=== PATIENT | female | born 1965 | race Caucasian/White ===

== ENCOUNTER 2021-03-13 15:20 | Inpatient (IN) | payer OTHER, SELFPAY ==
[2021-03-13 16:09] VITALS: BP 136/81; PULSE 98; RESP 20; TEMP 36.2; O2SAT 93; BMI 39.1
--- NOTE | 2021-03-13 16:16 | DI.RAD.S_ITS ---
PROCEDURE: XR CHEST 2V INDICATIONS: shortness of breath TECHNIQUE: 2 views of the chest were acquired. COMPARISON: None. FINDINGS: Surgical changes and devices: Right shoulder arthroplasty hardware is partially seen. Lungs and pleura: Lungs are clear. No pleural effusions or pneumothorax. Mediastinum: Mediastinal contours are normal. Heart size is normal. Bones and chest wall: No suspicious bony abnormalities. Age-appropriate bony degenerative changes are seen. Accentuated thoracic kyphosis is seen. Soft tissues appear unremarkable. IMPRESSION: No acute cardiopulmonary process is seen. Postoperative and degenerative changes are seen. Dictated by: Gianfranco Al M.D. on 03/13/2021 at 16:06 Approved by: Gianfranco Al M.D. on 03/13/2021 at 16:07
[2021-03-13 16:39] LABS: COVID19 -Nasal RAPID POSITIVE (Negative)
[2021-03-13 18:40] LABS: Add Manual Diff / Slide Review NO; Basophils Absolute Auto 0 /uL (0-100); Basophils Percent Auto 0.3 % (0-2); Eosinophils Absolute Auto 0 /uL (0-450); Eosinophils Percent Auto 0.5 % (2-4); Hemoglobin 12.9 g/dL (12.0-16.0); Lymphocytes Absolute Auto 1500 /uL (1100-4500); Lymphocytes Percent Auto 34.9 % (25-40); Mean Corpuscular Hemoglobin 28.3 PG (26-34); Mean Corpuscular Volume 83.3 fL (80-100); Monocytes Absolute Auto 400 /uL (0-900); Neutrophils Absolute Auto 2400 /uL (1500-7000); Neutrophils Percent Auto 55.3 % (50-75); Platelet Count 125 X10^3/uL (150-400); Red Blood Cell Count 4.56 X10^6/uL (4.0-5.2); White Blood Cell Count 4.4 X10^3/uL (4.5-11.0)
[2021-03-13 18:52] LABS: Alanine Aminotransferase 47 IU/L (<35); Albumin Globulin Ratio 1.3 (1.0-2.8); Alkaline Phosphatase 81 U/L (38-126); Aspartate Aminotransferase 40 IU/L (14-36); BUN Creatinine Ratio 17.8 (6-22); Bilirubin Total 0.6 mg/dL (0.2-1.3); Blood Urea Nitrogen 13 mg/dL (7-17); Calcium 8.8 mg/dL (8.4-10.2); Carbon Dioxide 27 mmol/L (22-32); Chloride 104 mmol/L (98-107); Estimated Glomerular Filt Rate > 60.0 mL/min (>60); Globulin 3.2 g/dL (1.7-4.1); Glucose 107 mg/dL (70-100); HEMOLYSIS < 15 (0-50); Potassium 3.8 mmol/L (3.4-5.1); Sodium 139 mmol/L (137-145); Total Protein 7.2 g/dL (6.3-8.2)
[2021-03-13 18:54] VITALS: PULSE 107; O2SAT 93
--- NOTE | 2021-03-13 18:55 | ED.GENADULT ---
HPI - General Adult General Chief complaint: Shortness of Breath/Dyspnea Stated complaint: Difficulty Breathing/Cough Time Seen by Provider: 03/13/21 18:54 Source: patient Mode of arrival: Family Vehicle Limitations: no limitations History of Present Illness HPI narrative: 55-year-old woman with a history of mild intermittent asthma, fibromyalgia, depression, chronic back pain for which she recently had epidural nerve ablation, no COVID vaccination presents with 3 days of fever, cough, general malaise, extraordinary fatigue, dyspnea no orthopnea, no chest pain no palpitations no abdominal pain vomiting or diarrhea. Related Data Allergies Allergy/AdvReac Type Severity Reaction Status Date / Time lisinopril Allergy Cough Verified 03/13/21 16:15 Penicillins Allergy Hives Verified 03/13/21 16:14 sertraline [From Zoloft] Allergy Hives Verified 03/13/21 16:15 Review of Systems Review of Systems Narrative: Remainder of complete review of systems is otherwise unremarkable except for that included in the HPI. Patient History Medical History (Updated 03/13/21 @ 19:24 by Cari Gates MD) Chronic pain COVID-19 Depression Fibromyalgia Surgical History (Updated 03/13/21 @ 19:18 by Cari Gates MD) S/P epidural steroid injection Social History Smoking Status: Current every day smoker Smoking Status: Current every day smoker tobacco type: cigarettes alcohol intake frequency: holidays/special occasions only Substance Use Type: does not use Exam Narrative Exam Narrative: General: Mildly ill-appearing with moderate distress. Tachypnea but Able to give a complete and coherent history. Well-nourished well-developed HEENT: Moist mucous membranes, normal sclera with reactive pupils, Neck: No JVD, supple Respiratory: Lungs with scattered wheeze in all lung o[place] but Full and symmetrical air movement. Able to speak in 5-6 word sentences. Supraclavicular retractions. No rhonchi Cardiac: Mild tachycardia but otherwise Regular rhythm no murmurs no bruits Abdomen: Soft, nontender, good bowel tones, no flank pain Skin: Warm and dry, no rashes Neurologic: Grossly neurologically intact with no obvious asymmetries or abnormalities Extremities: No trauma, well perfused Psych: Cooperative, appropriate insight and affect Initial Vital Signs Initial Vital Signs: Vital Signs Temperature 97.2 F L 03/13/21 16:09 Pulse Rate 98 H 03/13/21 16:09 Respiratory Rate 20 03/13/21 16:09 Blood Pressure 136/81 03/13/21 16:09 Pulse Oximetry 93 03/13/21 16:09 Course Orders Ordered: ED Orders 03/13/21 16:16 XR chest 2V Stat EKG-12 Lead Stat Measure peak expiratory flow ONCE RT Consult Eval and Treat Now 03/13/21 16:18 COVID19 -Nasal swab/Pre-Proc Stat 03/13/21 18:30 Complete Blood Count AUTO DIFF Stat Comprehensive Metabolic Panel Stat D Dimer Stat Lactate (Lactic Acid) Stat 03/13/21 20:13 Lactate (Lactic Acid) Stat Procalcitonin Stat 03/13/21 21:10 Blood Culture Stat Acetaminophen (Acetaminophen 325 Mg Tablet) 650 mg PO Q6HR PRN PRN Reason: Fever/Mild Pain (1-3) Albuterol (Albuterol 2.5 Mg/3 Ml Neb (Adult)) 2.5 mg INH RTQ6HR MEGHAN Albuterol (Albuterol 2.5 Mg/3 Ml Neb (Adult)) 2.5 mg INH RTQ4HR PRN PRN Reason: Shortness Of Breath Or Wheezing Dexamethasone (Dexamethasone 10 Mg/Ml Vial) 6 mg IV DAILY [facility] Enoxaparin Sodium (Enoxaparin 40 Mg/0.4 Ml Syringe) 40 mg SUBCUT DAILY [facility] Remdesivir 100 mg/ Sodium (Chloride) 250 mls @ 250 mls/hr IV Q24H [facility] Stop: 03/17/21 21:59 Azithromycin 500 mg/ Dextrose 250 mls @ 250 mls/hr IV Q24H [facility] Last Admin: 03/13/21 22:00 Dose: 250 mls/hr Documented by: MIKI Naloxone HCl (Naloxone 0.4 Mg/Ml Vial) 0.2 mg IV Q2MIN PRN PRN Reason: Opiate Reversal Nicotine (Nicotine 7 Mg Patch) 7 mg TOP DAILY [facility] Ondansetron HCl (Ondansetron 4 Mg/2 Ml Inj) 4 mg IV Q8HR PRN PRN Reason: Nausea And Vomiting Discontinued Medications Albuterol/Ipratropium (Albuterol/Ipratropium 3 Ml Ampul) 3 ml INH NOW ONE Stop: 03/13/21 19:25 Dexamethasone (Dexamethasone 10 Mg/Ml Vial) 6 mg IV NOW ONE Stop: 03/13/21 19:25 Last Admin: 03/13/21 19:54 Dose: 6 mg Documented by: MISSAEL Remdesivir 200 mg/ Sodium (Chloride) 250 mls @ 250 mls/hr IV NOW ONE Stop: 03/13/21 20:23 Last Admin: 03/13/21 19:53 Dose: 250 mls/hr Documented by: MISSAEL Sodium Chloride (Normal Saline 0.9%) 1,000 mls @ 150 mls/hr IV CONT MEGHAN Last Admin: 03/13/21 19:53 Dose: 150 mls/hr Documented by: MISSAEL Vital Signs Vital signs: Vital Signs - 8 hr 03/13/21 18:54 03/13/21 19:00 Pulse Rate 107 H 103 H Blood Pressure 138/78 Pulse Oximetry 93 93 Medical Decision Making Lab Data Result diagrams: 03/13/21 18:30 03/13/21 18:30 Labs: Lab Results 03/13/21 03/13/21 03/13/21 Range/Units 16:18 18:30 18:30 WBC 4.4 L (4.5-11.0) X10^3/uL RBC 4.56 (4.0-5.2) X10^6/uL Hgb 12.9 (12.0-16.0) g/dL Hct 38.0 (36-46) % MCV 83.3 (80-100) fL MCH 28.3 (26-34) PG MCHC 34.0 (30-36) % RDW 14.0 (11.6-14.8) % Plt Count 125 L (150-400) X10^3/uL Neut % (Auto) 55.3 (50-75) % Lymph % (Auto) 34.9 (25-40) % [place] % (Auto) 9.0 (3-14) % Eos % (Auto) 0.5 L (2-4) % Baso % (Auto) 0.3 (0-2) % Neut # (Auto) 2400 (3553-6147) /uL Lymph # (Auto) 1500 (7988-9998) /uL [place] # (Auto) 400 (0-900) /uL Eos # (Auto) 0 (0-450) /uL Baso # (Auto) 0 (0-100) /uL D-Dimer (<230) ng/mL Sodium 139 (137-145) mmol/L Potassium 3.8 (3.4-5.1) mmol/L Chloride 104 (98-107) mmol/L Carbon Dioxide 27 (22-32) mmol/L BUN 13 (7-17) mg/dL Creatinine 0.73 (0.52-1.04) mg/dL Estimated GFR > 60.0 (>60) mL/min BUN/Creatinine Ratio 17.8 (6-22) Glucose 107 H (70-100) mg/dL Lactate (0.7-2.1) mmol/L Calcium 8.8 (8.4-10.2) mg/dL Total Bilirubin 0.6 (0.2-1.3) mg/dL AST 40 H (14-36) IU/L ALT 47 H (<35) IU/L Alkaline Phosphatase 81 (38-126) U/L Total Protein 7.2 (6.3-8.2) g/dL Albumin 4.0 (3.5-5.0) g/dL Globulin 3.2 (1.7-4.1) g/dL Albumin/Globulin Ratio 1.3 (1.0-2.8) SARS-CoV-2 (PCR) Positive H (Negative) 03/13/21 03/13/21 Range/Units 18:30 18:30 WBC (4.5-11.0) X10^3/uL RBC (4.0-5.2) X10^6/uL Hgb (12.0-16.0) g/dL Hct (36-46) % MCV (80-100) fL MCH (26-34) PG MCHC (30-36) % RDW (11.6-14.8) % Plt Count (150-400) X10^3/uL Neut % (Auto) (50-75) % Lymph % (Auto) (25-40) % [place] % (Auto) (3-14) % Eos % (Auto) (2-4) % Baso % (Auto) (0-2) % Neut # (Auto) (4321-5172) /uL Lymph # (Auto) (8762-0098) /uL Gray # (Auto) (0-900) /uL Eos # (Auto) (0-450) /uL Baso # (Auto) (0-100) /uL D-Dimer 387 H (<230) ng/mL Sodium (137-145) mmol/L Potassium (3.4-5.1) mmol/L Chloride (98-107) mmol/L Carbon Dioxide (22-32) mmol/L BUN (7-17) mg/dL Creatinine (0.52-1.04) mg/dL Estimated GFR (>60) mL/min BUN/Creatinine Ratio (6-22) Glucose (70-100) mg/dL Lactate 1.0 (0.7-2.1) mmol/L Calcium (8.4-10.2) mg/dL Total Bilirubin (0.2-1.3) mg/dL AST (14-36) IU/L ALT (<35) IU/L Alkaline Phosphatase (38-126) U/L Total Protein (6.3-8.2) g/dL Albumin (3.5-5.0) g/dL Globulin (1.7-4.1) g/dL Albumin/Globulin Ratio (1.0-2.8) SARS-CoV-2 (PCR) (Negative) Imaging Data Chest x-ray: Radiologist's Impression: FINDINGS:? ? Surgical changes and devices:? Right shoulder arthroplasty hardware is partially seen. ? Lungs and pleura:? Lungs are clear.? No pleural effusions or pneumothorax.? ? Mediastinum:? Mediastinal contours are normal.? Heart size is normal.? ? Bones and chest wall:? No suspicious bony abnormalities.? Age-appropriate bony degenerative changes are seen.? Accentuated thoracic kyphosis is seen.? ? Soft tissues appear unremarkable.? ? ? IMPRESSION:? ? No acute cardiopulmonary process is seen.? ? Postoperative and degenerative changes are seen.? ? ? Dictated by: Gianfranco Al M.D. on 03/13/2021 at 16:06 ?? ECG Data Interpretation: Sinus rhythm at a rate of 99 Normal axis, normal intervals No acute ischemic changes MDM Narrative Medical decision making narrative: 55-year-old woman on day 3 of COVID-19, non vaccinated. Feeling much better on 2 L of nasal cannula oxygen. Had been at 93% however significantly tachypneic and visibly dyspneic, much better with 2 L nasal cannula. She does have fairly significant wheeze but no significant rhonchi. Tachypnea improves with nasal cannula oxygen. Will complete workup an anticipate hospitalization. Will begin both Decadron an remdesivir. She does have a slight bump in transaminases but renal function is appropriate. Findings concerns and plan reviewed with patient. Discharge Plan Departure Patient Disposition: Admitted As Inpatient Clinical Impression: COVID-19 Admit Date/Time: 03/13/21 19:58 Admit Provider: Michael Null
[2021-03-13 19:00] VITALS: BP 138/78; PULSE 103; O2SAT 93
[2021-03-13 19:51] LABS: D Dimer 387 ng/mL (<230)
[2021-03-13] MEDS: SODIUM CHLORIDE 0.9% 1,000 ML 150 ML IV (19:53)
[2021-03-13] MEDS: REMDESIVIR 200 MG in SODIUM CHLORIDE 0.9% 210 ML 250 ML IV (19:53)
[2021-03-13] MEDS: DEXAMETHASONE 10 MG/ML VIAL 6 MG IV (19:54)
[2021-03-13 20:21] VITALS: BMI 39.1
[2021-03-13 21:00] LABS: Procalcitonin 0.06 ng/mL (<0.5)
[2021-03-13] MEDS: ALBUTEROL/IPRATROPIUM 3 ML AMPUL INH (21:30)
[2021-03-13 21:35] VITALS: PULSE 101; RESP 16; O2SAT 95
[2021-03-13 21:40] VITALS: BP 144/74; PULSE 104; RESP 22; TEMP 36.2; O2SAT 97
[2021-03-13] MEDS: AZITHROMYCIN 500 MG in DEXTROSE 5% IN WATER 250 ML IV (22:00)
--- NOTE | 2021-03-13 22:13 | P.HP_ITS ---
History of Present Illness History of Present Illness Date Patient Seen: 03/13/21 Time Patient Seen: 21:00 Chief complaint: Difficulty Breathing/Cough Narrative: Ms. Sal is a 55W with PMH active smoker, depression, chronic pain, mild asthma who presents to the hospital with shortness of breath. She has not been vaccinated against COVID. Three days ago she developed cough with clear sputum, shortness of breath, malaise, subjective fevers. No chest pain, abdomina l pain, nausea, vomiting. She has had pneumonia in the past and said this felt the same. She has not been diagnosed with COPD. In the ED workup was done, vitals were notable for sats of 93% on room air, respiratory rate in 20s, tachycardic in 100s. Labs notable for WBC 4.4, platelets 125, creatinine 0.73, AST 40, ALT 47. COVID positive. Lactate 1.0. D- dimer 387. Chest xray with no acute process. She was ordered for remdesivir, decadron, and inhalers and admitted for further treatment. Medications: buspar, lyrica, cyclobenzaprine, albuterol Patient History Medical History Chronic pain COVID-19 Depression Fibromyalgia Surgical History S/P epidural steroid injection Family & Social History Safety & Behavioral: Feels Safe in Current Yes Environment Been Physically Hurt or No Threatened By a Person Tobacco & Substance use: Smoking Status Current every day smoker alcohol intake frequency holiday/special occasion Substance Use Type does not use Meds Home Medications and Allergies Allergies Allergy/AdvReac Type Severity Reaction Status Date / Time lisinopril Allergy Cough Verified 03/13/21 16:15 Penicillins Allergy Hives Verified 03/13/21 16:14 sertraline [From Zoloft] Allergy Hives Verified 03/13/21 16:15 Review of Systems Review of Systems Narrative: 14 systems reviewed and negative aside from what is noted in HPI Exam Vital Signs (past 8 hours): - 03/14/21 03:00 03/14/21 04:09 Temperature 96.4 F L Pulse Rate 85 98 H Respiratory Rate 14 16 Blood Pressure 124/70 Pulse Oximetry 97 96 Oxygen Delivery Method Nasal Cannula Oxygen Flow Rate 2 Narrative Exam Narrative: GEN: moderate respiratory distress HEENT: PERRL, moist mucous membranes NECK: trachea midline, no JVD CV: tachycardic, no murmurs PULM: significant wheezing ABD: soft, nontender, nondistended, no organomegaly, normal bowel sounds EXT: warm and well perfused with no edema NEURO: awake, alert, oriented, no focal deficits Objective Labs Result Diagrams: 03/13/21 18:30 03/13/21 18:30 Labs: Laboratory Results - last 24 hr 03/13/21 03/13/21 03/13/21 16:18 18:30 18:30 WBC 4.4 L RBC 4.56 Hgb 12.9 Hct 38.0 MCV 83.3 MCH 28.3 MCHC 34.0 RDW 14.0 Plt Count 125 L Neut % (Auto) 55.3 Lymph % (Auto) 34.9 [place] % (Auto) 9.0 Eos % (Auto) 0.5 L Baso % (Auto) 0.3 Neut # (Auto) 2400 Lymph # (Auto) 1500 [place] # (Auto) 400 Eos # (Auto) 0 Baso # (Auto) 0 D-Dimer Sodium 139 Potassium 3.8 Chloride 104 Carbon Dioxide 27 BUN 13 Creatinine 0.73 Estimated GFR > 60.0 BUN/Creatinine Ratio 17.8 Glucose 107 H Lactate Calcium 8.8 Total Bilirubin 0.6 AST 40 H ALT 47 H Alkaline Phosphatase 81 Total Protein 7.2 Albumin 4.0 Globulin 3.2 Albumin/Globulin Ratio 1.3 Procalcitonin SARS-CoV-2 (PCR) Positive H 03/13/21 03/13/21 03/13/21 18:30 18:30 20:13 WBC RBC Hgb Hct MCV MCH MCHC RDW Plt Count Neut % (Auto) Lymph % (Auto) [place] % (Auto) Eos % (Auto) Baso % (Auto) Neut # (Auto) Lymph # (Auto) [place] # (Auto) Eos # (Auto) Baso # (Auto) D-Dimer 387 H Sodium Potassium Chloride Carbon Dioxide BUN Creatinine Estimated GFR BUN/Creatinine Ratio Glucose Lactate 1.0 1.0 Calcium Total Bilirubin AST ALT Alkaline Phosphatase Total Protein Albumin Globulin Albumin/Globulin Ratio Procalcitonin SARS-CoV-2 (PCR) 03/13/21 20:13 WBC RBC Hgb Hct MCV MCH MCHC RDW Plt Count Neut % (Auto) Lymph % (Auto) [place] % (Auto) Eos % (Auto) Baso % (Auto) Neut # (Auto) Lymph # (Auto) [place] # (Auto) Eos # (Auto) Baso # (Auto) D-Dimer Sodium Potassium Chloride Carbon Dioxide BUN Creatinine Estimated GFR BUN/Creatinine Ratio Glucose Lactate Calcium Total Bilirubin AST ALT Alkaline Phosphatase Total Protein Albumin Globulin Albumin/Globulin Ratio Procalcitonin 0.06 SARS-CoV-2 (PCR) Assessment & Plan Assessment & Plan narrative: Ms. Sal is a 55W active smoker who presents with shortness of breath found to be wheezing and COVID positive 1. Acute respiratory distress -patient active smoker with last cigarette yesterday, but wants to quit -COVID positive -exam notable for significant wheezing, also mild clear sputum production -clinically sounds consistent with COPD exacerbation, which would be a new diagnosis vs an exacerbation of her asthma -did desat when I was in room to 92% on room air -will start remdesivir and dexamethasone for COVID -for COPD exacerbation ordered for nebs, azithromycin, and steroids as above -sputum culture ordered -discussed smoking cessation with patient -ordered nicotine patch 2. Leukopenia, thrombocytopenia, acute -mild, suspect related to infection -trend daily, no indication for transfusion 3. Transaminitis, acute -mild, suspect secondary to infection -monitor while on remdesivir 4. Chronic pain -continue lyrica -hold muscle relaxers 5. Hypertension -hold anti-hypertensives 6. Depression -continue buspar 7. Obesity -BMI 39.2 -risk factor for severe COVID -encourage outpatient follow up with PCP CODE: Full Proxy: Roney Sal, I have utilized all available immediate resources to obtain, update, or review the patient's current medications. Time Spent With Patient Critical Care time: I spent a total of [] minutes of critical care time on this patient's care today; this time is exclusive of procedural time. Quality MIPS - Admit I confirm the patient?s Advance Care Plan is present, Code status is documented, Surrogate decision maker is in patient?s record [If Yes, STOP here]: Yes
[2021-03-14] VITALS (10 sets, daily range): BP systolic 124–142; BP diastolic 70–80; PULSE 83–98; RESP 14–26; TEMP 35.5–36.3; O2SAT 93–97
[2021-03-14] MEDS: ALBUTEROL 2.5 MG/3 ML NEB (ADULT) INH ×4 (03:58→20:52)
[2021-03-14 06:54] LABS: Add Manual Diff / Slide Review NO; Basophils Absolute Auto 0 /uL (0-100); Basophils Percent Auto 0.3 % (0-2); Eosinophils Absolute Auto 0 /uL (0-450); Hematocrit 36.4 % (36-46); Hemoglobin 12.3 g/dL (12.0-16.0); Lymphocytes Absolute Auto 800 /uL (1100-4500); Lymphocytes Percent Auto 30.4 % (25-40); Mean Corpuscular HGB Conc 33.7 % (30-36); Mean Corpuscular Hemoglobin 28.3 PG (26-34); Mean Corpuscular Volume 83.9 fL (80-100); Monocytes Absolute Auto 200 /uL (0-900); Monocytes Percent Auto 7.8 % (3-14); Neutrophils Absolute Auto 1500 /uL (1500-7000); Neutrophils Percent Auto 61.5 % (50-75); Platelet Count 131 X10^3/uL (150-400); Red Blood Cell Count 4.34 X10^6/uL (4.0-5.2); Red Cell Distribution Width 14.2 % (11.6-14.8); White Blood Cell Count 2.5 X10^3/uL (4.5-11.0)
[2021-03-14 07:08] LABS: Alanine Aminotransferase 43 IU/L (<35); Albumin 3.7 g/dL (3.5-5.0); Albumin Globulin Ratio 1.2 (1.0-2.8); Alkaline Phosphatase 81 U/L (38-126); Aspartate Aminotransferase 39 IU/L (14-36); Bilirubin Total 0.5 mg/dL (0.2-1.3); Bilirubin Unconjugated 0.2 mg/dL (0.0-1.1); HEMOLYSIS < 15 (0-50); Total Protein 6.7 g/dL (6.3-8.2)
[2021-03-14 07:10] LABS: BUN Creatinine Ratio 17.6 (6-22); Blood Urea Nitrogen 12 mg/dL (7-17); Calcium 8.6 mg/dL (8.4-10.2); Carbon Dioxide 27 mmol/L (22-32); Chloride 105 mmol/L (98-107); Estimated Glomerular Filt Rate > 60.0 mL/min (>60); Glucose 137 mg/dL (70-100); HEMOLYSIS < 15 (0-50); Potassium 3.8 mmol/L (3.4-5.1); Sodium 139 mmol/L (137-145)
[2021-03-14] MEDS: DEXAMETHASONE 10 MG/ML VIAL 6 MG IV (08:19)
[2021-03-14] MEDS: ENOXAPARIN 40 MG/0.4 ML SYRINGE SUBCUT (08:19)
[2021-03-14] MEDS: NICOTINE 7 MG PATCH TOP (08:21)
--- NOTE | 2021-03-14 14:47 | CM.DANOTE ---
Patient is a 55 yo female who was admitted on 03/13/21 for COVID+. Pt has [employer] for insurance and her PCP is not listed. EMR was reviewed. Per MD, pt is Unvaccinated and has Fibromyalgia and smokes at baseline and tested positive for COVID+ and respiratory distress. Per RN, pt was transitioned from 2LNC oxygen to room air this afternoon and is fairly independent at baseline. SW attempted to contact pt via room phone a couple times today and RN confirms pt is appropriate to have conversation via phone but room phone may not be nearby and RN will make sure at least her cell phone is within reach. RN states that pt does live in [place] with her spouse and is active and independent at baseline but has been in [place] housesitting her friend's house when she began having symptoms of COVID and friend whose house pt is staying also tested positive for COVID. Pt's spouse drove up from [place] and provided pt's home meds and he is aware that he has been exposed but is currently asymptomatic. Spouse now staying in [place] helping with house sitting for their friend and to be available for transport when pt medically stable to d/c. No d/c needs anticipated at this time. Plan: SW to follow closely to confirm pt able to tolerate room air and currently OBS Status with likely plan of d/c home via spouse POV if pt remains stable. ADDIE Whitfield Discharge Planning/Care Management CM Discharge Assessment Start: 03/14/21 14:43 Freq: Status: Active Protocol: Document 03/14/21 14:44 BF (Rec: 03/14/21 14:47 BF [id number]) Discharge Planning Assessment Assigned [employer] ADDIE Barnard DPOA/Assigned Designee Name informally spouse Roney Contact Information [phone] Advance Directives? No Advance Directives on File No History Provided By Patient,Medical Record Has Patient been admitted in last 30 No days? Prior Living Arrangements House Household Members spouse Type of transporation used prior to Drives own vehicle admit Independent with ADL's Yes Is patient alert and oriented? Yes Caregiver for Another No Barriers to Discharge No Discharge Plan Home Transportation Arrangement Spouse now in [place] and can transport at d/c Referrals Initiated None needed Review Status In Process Please Provide Date Initial DC 03/14/21 Assessment Was Performed Next Review Type Continued Stay Review
[2021-03-14] MEDS: PREGABALIN 75 MG CAPSULE PO ×2 (15:01→20:48)
[2021-03-14] MEDS: DULOXETINE 30 MG CAPSULE 120 MG PO (15:01)
[2021-03-14] MEDS: CYCLOBENZAPRINE 10 MG TABLET PO (15:01)
--- NOTE | 2021-03-14 15:07 | PC.NURSE ---
Patients home Rx brought in by , Trazodone, dicyclomine, losartan, pregabalin, cyclobenzaprine, Buspar and Duloxetine stored in nurse fountain server until Pharmacy can retrieve them, patients Naloxone sent to pharmacy for verification. Patients vitamins remain in cupboard in room. Patient currently on RA, 94%, denies SOB.
--- NOTE | 2021-03-14 16:52 | PM.PN.1 ---
Subjective Subjective Date Patient Seen: 03/14/21 Interval history: 55-year-old female admitted for COPD exacerbation due to COVID infection. Patient reports improvement in her breathing. Exam Vital Signs (past 8 hours): - 03/14/21 14:00 03/14/21 15:05 Temperature 96 F L Pulse Rate 93 H 89 Respiratory Rate 18 16 Blood Pressure 125/76 Pulse Oximetry 95 94 Oxygen Delivery Method Room Air Oxygen Flow Rate 0 Narrative Exam Narrative: General: Alert, breathing is mildly labored Lungs: Able to speak full sentences, mild bilateral wheeze Extremities: No edema Objective Labs Result Diagrams: 03/14/21 06:30 03/14/21 06:30 Labs: Laboratory Results - last 24 hr 03/13/21 03/13/21 03/13/21 18:30 18:30 18:30 WBC 4.4 L RBC 4.56 Hgb 12.9 Hct 38.0 MCV 83.3 MCH 28.3 MCHC 34.0 RDW 14.0 Plt Count 125 L Neut % (Auto) 55.3 Lymph % (Auto) 34.9 [place] % (Auto) 9.0 Eos % (Auto) 0.5 L Baso % (Auto) 0.3 Neut # (Auto) 2400 Lymph # (Auto) 1500 [place] # (Auto) 400 Eos # (Auto) 0 Baso # (Auto) 0 D-Dimer Sodium 139 Potassium 3.8 Chloride 104 Carbon Dioxide 27 BUN 13 Creatinine 0.73 Estimated GFR > 60.0 BUN/Creatinine Ratio 17.8 Glucose 107 H Lactate 1.0 Calcium 8.8 Total Bilirubin 0.6 Conjugated Bilirubin Unconjugated Bilirubin AST 40 H ALT 47 H Alkaline Phosphatase 81 Total Protein 7.2 Albumin 4.0 Globulin 3.2 Albumin/Globulin Ratio 1.3 Procalcitonin 03/13/21 03/13/21 03/13/21 18:30 20:13 20:13 WBC RBC Hgb Hct MCV MCH MCHC RDW Plt Count Neut % (Auto) Lymph % (Auto) [place] % (Auto) Eos % (Auto) Baso % (Auto) Neut # (Auto) Lymph # (Auto) [place] # (Auto) Eos # (Auto) Baso # (Auto) D-Dimer 387 H Sodium Potassium Chloride Carbon Dioxide BUN Creatinine Estimated GFR BUN/Creatinine Ratio Glucose Lactate 1.0 Calcium Total Bilirubin Conjugated Bilirubin Unconjugated Bilirubin AST ALT Alkaline Phosphatase Total Protein Albumin Globulin Albumin/Globulin Ratio Procalcitonin 0.06 03/14/21 03/14/21 03/14/21 06:30 06:30 06:30 WBC 2.5 L RBC 4.34 Hgb 12.3 Hct 36.4 MCV 83.9 MCH 28.3 MCHC 33.7 RDW 14.2 Plt Count 131 L Neut % (Auto) 61.5 Lymph % (Auto) 30.4 [place] % (Auto) 7.8 Eos % (Auto) 0.0 L Baso % (Auto) 0.3 Neut # (Auto) 1500 Lymph # (Auto) 800 L [place] # (Auto) 200 Eos # (Auto) 0 Baso # (Auto) 0 D-Dimer Sodium 139 Potassium 3.8 Chloride 105 Carbon Dioxide 27 BUN 12 Creatinine 0.68 Estimated GFR > 60.0 BUN/Creatinine Ratio 17.6 Glucose 137 H Lactate Calcium 8.6 Total Bilirubin 0.5 Conjugated Bilirubin 0.0 Unconjugated Bilirubin 0.2 AST 39 H ALT 43 H Alkaline Phosphatase 81 Total Protein 6.7 Albumin 3.7 Globulin 3.0 Albumin/Globulin Ratio 1.2 Procalcitonin REPLACED BY [facility] Medical History Chronic pain COVID-19 Depression Fibromyalgia Surgical History S/P epidural steroid injection Social History household members: spouse Smoking Status: Current every day smoker Assessment & Plan Assessment & Plan narrative: Ms. Sal is a 55W active smoker who presents with shortness of breath found to be wheezing and COVID positive 1. Acute respiratory distress/COPD exacerbation, improving -patient active smoker with last cigarette yesterday, but wants to quit -COVID positive -exam notable for significant wheezing, also mild clear sputum production -clinically sounds consistent with COPD exacerbation, which would be a new diagnosis vs an exacerbation of her asthma -did desat to 92% on room air -will start remdesivir and dexamethasone for COVID -for COPD exacerbation ordered for nebs, azithromycin, and steroids as above -sputum culture ordered -discussed smoking cessation with patient -ordered nicotine patch -likely can discharge tomorrow on oral meds and inhaler 2. Leukopenia, thrombocytopenia, acute -mild, suspect related to infection -trend daily, no indication for transfusion 3. Transaminitis, acute -mild, suspect secondary to infection -monitor while on remdesivir 4. Chronic pain -continue routine meds 5. Hypertension -restarted losartan 6. Depression -continue buspar, duloxetine 7. Obesity -BMI 39.2 -risk factor for severe COVID -encourage outpatient follow up with PCP CODE: Full Proxy: Roney Sal, Time Spent With Patient Critical Care time: I spent a total of [] minutes of critical care time on this patient's care today; this time is exclusive of procedural time.
[2021-03-14] MEDS: REMDESIVIR 100 MG in SODIUM CHLORIDE 0.9% 230 ML 250 ML IV (20:48)
[2021-03-14] MEDS: BUSPIRONE 5 MG TABLET 30 MG PO (20:48)
[2021-03-14] MEDS: TRAZODONE 100 MG TABLET 200 MG PO (20:48)
[2021-03-14] MEDS: AZITHROMYCIN 500 MG in DEXTROSE 5% IN WATER 250 ML IV (22:15)
[2021-03-15] VITALS (7 sets, daily range): BP systolic 128–145; BP diastolic 84–96; PULSE 88–106; RESP 16–20; TEMP 36.6–36.8; O2SAT 91–93
[2021-03-15] MEDS: ALBUTEROL 2.5 MG/3 ML NEB (ADULT) INH (08:05)
[2021-03-15] MEDS: ENOXAPARIN 40 MG/0.4 ML SYRINGE SUBCUT (09:08)
[2021-03-15] MEDS: NALTREXONE 6 EACH PO (09:08)
[2021-03-15] MEDS: DULOXETINE 30 MG CAPSULE 120 MG PO (09:08)
[2021-03-15] MEDS: PREGABALIN 75 MG CAPSULE PO ×2 (09:09→20:57)
[2021-03-15] MEDS: LOSARTAN 50 MG TABLET PO (09:09)
[2021-03-15] MEDS: NICOTINE 7 MG PATCH TOP (09:09)
[2021-03-15] MEDS: BUSPIRONE 5 MG TABLET 30 MG PO ×2 (09:11→20:57)
[2021-03-15] MEDS: ACETAMINOPHEN 325 MG TABLET 650 MG PO (09:11)
[2021-03-15] MEDS: DEXAMETHASONE 10 MG/ML VIAL 6 MG IV (09:12)
[2021-03-15] MEDS: DICYCLOMINE 10 MG CAPSULE 30 MG PO (09:21)
--- NOTE | 2021-03-15 12:10 | PC.NURSE ---
Addendum entered by Wu Plata R.N. 03/15/21 19:19: Pt stating she feels better than earlier today and does look more relaxed. Has not been on O2 this shift sats at 92%. Original Note: Pt alert responsive, BS wheezy on inspiration and expiration.Coughing with some pain. Continues on RA sating 92%.RT at bedside as needed.
--- NOTE | 2021-03-15 13:00 | PM.PN.1 ---
Subjective Subjective Date Patient Seen: 03/15/21 Time Patient Seen: 08:00 Interval history: Today she is seen just after walking back from the bathroom. She desat to the high 80s, but recovered quickly. She is quite significantly short of breath, and tachycardic. She feels poorly. At rest she feels minimal shortness of breath. Exam Vital Signs (past 8 hours): - 03/15/21 06:00 03/15/21 08:06 03/15/21 09:09 Temperature 98.2 F Pulse Rate 106 H 104 H 106 H Respiratory Rate 20 20 Blood Pressure 128/93 H 128/93 H Pulse Oximetry 92 91 Oxygen Delivery Method Room Air Oxygen Flow Rate 0 Narrative Exam Narrative: General:? moderate respiratory distress Lungs:? bilateral wheezing with poor air movement Extremities: No edema Objective Labs Result Diagrams: 03/14/21 06:30 03/14/21 06:30 [facility] Medical History Chronic pain COVID-19 Depression Fibromyalgia Surgical History S/P epidural steroid injection Social History household members: spouse Smoking Status: Current every day smoker Assessment & Plan Assessment & Plan narrative: Ms. Sal is a 55W active smoker who presents with shortness of breath found to be wheezing and COVID positive 1. Acute respiratory distress/COPD exacerbation, improving -patient active smoker with last cigarette yesterday, but wants to quit -COVID positive -exam notable for significant wheezing, also mild clear sputum production -clinically sounds consistent with COPD exacerbation, which would be a new diagnosis -did desat to 92% on room air -will start remdesivir and dexamethasone for COVID -for COPD exacerbation ordered for nebs, azithromycin, and steroids as above -sputum culture ordered -discussed smoking cessation with patient -ordered nicotine patch -possibly can discharge tomorrow on oral meds and inhaler 2. Leukopenia, thrombocytopenia, acute -mild, suspect related to infection -trend daily, no indication for transfusion 3. Transaminitis, acute -mild, suspect secondary to infection -monitor while on remdesivir 4. Chronic pain -continue routine meds 5. Hypertension -restarted losartan 6. Depression -continue buspar, duloxetine 7. Obesity -BMI 39.2 -risk factor for severe COVID -encourage outpatient follow up with PCP Time Spent With Patient Critical Care time: I spent a total of [] minutes of critical care time on this patient's care today; this time is exclusive of procedural time.
--- NOTE | 2021-03-15 15:18 | PM.PN.1 ---
Subjective Subjective Date Patient Seen: 03/15/21 Time Patient Seen: 08:00 Exam Vital Signs (past 8 hours): - 03/15/21 08:06 03/15/21 09:09 03/15/21 14:00 Temperature 98.2 F Pulse Rate 104 H 106 H 90 Respiratory Rate 20 18 Blood Pressure 128/93 H 137/84 Pulse Oximetry 91 91 Oxygen Delivery Method Room Air Oxygen Flow Rate 0 Objective Labs Result Diagrams: 03/14/21 06:30 03/14/21 06:30 [facility] Medical History Chronic pain COVID-19 Depression Fibromyalgia Surgical History S/P epidural steroid injection Social History household members: spouse Smoking Status: Current every day smoker Assessment & Plan Time Spent With Patient Critical Care time: I spent a total of [] minutes of critical care time on this patient's care today; this time is exclusive of procedural time.
[2021-03-15] MEDS: REMDESIVIR 100 MG in SODIUM CHLORIDE 0.9% 230 ML 250 ML IV (20:56)
[2021-03-15] MEDS: TRAZODONE 100 MG TABLET 200 MG PO (20:57)
[2021-03-15] MEDS: AZITHROMYCIN 500 MG in DEXTROSE 5% IN WATER 250 ML IV (22:15)
[2021-03-16] VITALS (8 sets, daily range): BP systolic 137–145; BP diastolic 72–91; PULSE 92–97; RESP 16–22; TEMP 36.1–36.7; O2SAT 92–94
[2021-03-16] MEDS: ENOXAPARIN 40 MG/0.4 ML SYRINGE SUBCUT (09:37)
[2021-03-16] MEDS: LOSARTAN 50 MG TABLET PO (09:38)
[2021-03-16] MEDS: PREGABALIN 75 MG CAPSULE PO ×2 (09:38→21:52)
[2021-03-16] MEDS: DEXAMETHASONE 10 MG/ML VIAL 6 MG IV (09:38)
[2021-03-16] MEDS: NICOTINE 7 MG PATCH TOP (09:39)
[2021-03-16] MEDS: DULOXETINE 30 MG CAPSULE 120 MG PO (09:39)
[2021-03-16] MEDS: DICYCLOMINE 10 MG CAPSULE 30 MG PO (09:42)
[2021-03-16] MEDS: NALTREXONE 6 EACH PO (09:44)
[2021-03-16] MEDS: BUSPIRONE 5 MG TABLET 30 MG PO ×2 (10:17→21:52)
--- NOTE | 2021-03-16 15:11 | CM.DPC ---
DCP Cont: Patient is not yet ready for discharge. As stated per [facility] assessment, patient is independent at her baseline, and is from [place]. 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 P: DCP to continue to follow. Patient should be able to return home when medically stable and no longer in need of oxygen. Jennifer Hidalgo RN/Line Maintenance
--- NOTE | 2021-03-16 18:20 | PM.PN.1 ---
Subjective Subjective Date Patient Seen: 03/16/21 Time Patient Seen: 08:00 Interval history: She is still short of breath and wheezing. Exam Vital Signs (past 8 hours): - 03/16/21 12:45 Temperature 98.0 F Pulse Rate 97 H Respiratory Rate 17 Pulse Oximetry 92 Oxygen Delivery Method Room Air Oxygen Flow Rate 2 Narrative Exam Narrative: General:? moderate respiratory distress Lungs:? bilateral wheezing with poor air movement Extremities: No edema Objective Labs Result Diagrams: 03/14/21 06:30 03/14/21 06:30 [facility] Medical History Chronic pain COVID-19 Depression Fibromyalgia Surgical History S/P epidural steroid injection Social History household members: spouse Smoking Status: Current every day smoker Assessment & Plan Assessment & Plan narrative: Ms. Sal is a 55W active smoker who presents with shortness of breath found to be wheezing and COVID positive 1. Acute respiratory distress/COPD exacerbation, improving -patient active smoker with last cigarette yesterday, but wants to quit -COVID positive -exam notable for significant wheezing, also mild clear sputum production -clinically sounds consistent with COPD exacerbation, which would be a new diagnosis -did desat to 92% on room air -will start remdesivir and dexamethasone for COVID -for COPD exacerbation ordered for nebs/MDI, azithromycin, and steroids as above -sputum culture ordered -discussed smoking cessation with patient -ordered nicotine patch -possibly can discharge tomorrow on oral meds and inhaler 2. Leukopenia, thrombocytopenia, acute -mild, suspect related to infection -trend daily, no indication for transfusion 3. Transaminitis, acute -mild, suspect secondary to infection -monitor while on remdesivir 4. Chronic pain -continue routine meds 5. Hypertension -restarted losartan 6. Depression -continue buspar, duloxetine 7. Obesity -BMI 39.2 -risk factor for severe COVID -encourage outpatient follow up with PCP Time Spent With Patient Critical Care time: I spent a total of [] minutes of critical care time on this patient's care today; this time is exclusive of procedural time.
[2021-03-16] MEDS: ALBUTEROL/IPRATROPIUM 3 ML AMPUL INH (20:05)
[2021-03-16] MEDS: TRAZODONE 100 MG TABLET 200 MG PO (21:52)
[2021-03-16] MEDS: REMDESIVIR 100 MG in SODIUM CHLORIDE 0.9% 230 ML 250 ML IV (21:52)
[2021-03-16] MEDS: AZITHROMYCIN 500 MG in DEXTROSE 5% IN WATER 250 ML IV (23:57)
[2021-03-17] MEDS: ALBUTEROL/IPRATROPIUM 3 ML AMPUL INH ×3 (00:01→12:58)
[2021-03-17 00:06] VITALS: PULSE 95; RESP 18; O2SAT 95
[2021-03-17 06:54] LABS: Hematocrit 36.5 % (36-46); Hemoglobin 12.3 g/dL (12.0-16.0); Mean Corpuscular HGB Conc 33.9 % (30-36); Mean Corpuscular Hemoglobin 28.1 PG (26-34); Platelet Count 200 X10^3/uL (150-400); Red Blood Cell Count 4.39 X10^6/uL (4.0-5.2); Red Cell Distribution Width 14.5 % (11.6-14.8); White Blood Cell Count 5.4 X10^3/uL (4.5-11.0)
[2021-03-17 07:02] LABS: BUN Creatinine Ratio 21.4 (6-22); Blood Urea Nitrogen 15 mg/dL (7-17); Calcium 8.8 mg/dL (8.4-10.2); Carbon Dioxide 30 mmol/L (22-32); Chloride 104 mmol/L (98-107); Estimated Glomerular Filt Rate > 60.0 mL/min (>60); Glucose 104 mg/dL (70-100); HEMOLYSIS < 15 (0-50); Potassium 3.6 mmol/L (3.4-5.1); Sodium 139 mmol/L (137-145)
[2021-03-17 08:50] VITALS: PULSE 88; RESP 20; O2SAT 94
[2021-03-17] MEDS: DICYCLOMINE 10 MG CAPSULE 30 MG PO (09:10)
[2021-03-17] MEDS: BUSPIRONE 5 MG TABLET 30 MG PO (09:10)
[2021-03-17] MEDS: NALTREXONE 6 EACH PO (09:48)
[2021-03-17] MEDS: DEXAMETHASONE 10 MG/ML VIAL 6 MG IV (09:49)
[2021-03-17] MEDS: ENOXAPARIN 40 MG/0.4 ML SYRINGE SUBCUT (09:49)
[2021-03-17 09:50] VITALS: BP 145/72
[2021-03-17] MEDS: LOSARTAN 50 MG TABLET PO (09:50)
[2021-03-17] MEDS: DULOXETINE 30 MG CAPSULE 120 MG PO (09:50)
[2021-03-17] MEDS: PREGABALIN 75 MG CAPSULE PO (09:50)
[2021-03-17] MEDS: NICOTINE 7 MG PATCH TOP (09:51)
[2021-03-17 11:05] VITALS: BP 117/85; PULSE 90; RESP 19; O2SAT 93
[2021-03-17 12:00] VITALS: O2SAT 93
[2021-03-17 13:00] VITALS: PULSE 92; RESP 20; O2SAT 92
--- NOTE | 2021-03-17 13:19 | PC.NURSE ---
Addendum entered by Scarlett Arauz R.N. 03/17/21 15:28: Discharge order received. HL discontinued intact. Home instructions given w/apparent understanding Awaiting ride home Pt home meds returned to her Pt escorted via W/C to waiting vehicle in stable condition. Original Note: Pt independent in room Denies any issues @ this time.. SpO2 93% 2L O2 RT doing TX as per orders.. HL intact/patent. Call light w/in reach.
--- NOTE | 2021-03-17 14:07 | PM.DS.1 ---
History of Present Illness History of Present Illness Date Patient Seen: 03/17/21 Time Patient Seen: 14:07 Chief complaint: Difficulty Breathing/Cough Narrative: Per Dr. Null, Ms. Sal is a 55W with H active smoker, depression, chronic pain, mild asthma who presents to the hospital with shortness of breath. She has not been vaccinated against COVID. Three days ago she developed cough with clear sputum, shortness of breath, malaise, subjective fevers. No chest pain, abdominal pain, nausea, vomiting. She has had pneumonia in the past and said this felt the same. She has not been diagnosed with COPD. In the ED workup was done, vitals were notable for sats of 93% on room air, respiratory rate in 20s, tachycardic in 100s. Labs notable for WBC 4.4, platelets 125, creatinine 0.73, AST 40, ALT 47. COVID positive. Lactate 1.0. D-dimer 387. Chest xray with no acute process. She was ordered for remdesivir, decadron, and inhalers and admitted for further treatment. Medications: buspar, lyrica, cyclobenzaprine, albuterol Discharge Providers Provider Date of admission: 03/13/21 19:58 Discharge Date: 03/17/21 Discharge provider: Dylan Fung DO Summary Hospital Course Discharge Diagnosis: 1. Acute respiratory failure with hypoxia/COPD exacerbation, improving 2. Leukopenia, thrombocytopenia, acute 3. Transaminitis, acute 4. Chronic pain 5. Hypertension 6. Depression 7. Obesity Hospital Course: Ms. Sla is a 55W active smoker who presents with shortness of breath found to be wheezing and COVID positive, she was admitted for COPD exacerbation and acute respiratory failure with hypoxia. She improved with steroid treatment and remdesevir therapy. She was discharged on a controller medication for COPD, with as needed albuterol inhaler and nebulizer / nebulizer machine. She was evaluated for home oxygen but on the day of discharge was not requiring supplemental therapy. She had a mild leukopenia, thrombocytopenia, and transaminitis that were stable are likely due to COVID 19 infection. No other changes were made to her chronic medications. Patient was also obese with BMI 39.1, which increased her risk for severe COVID infection. Time Spent with Patient Time spent: Greater than 30 minutes Exam Vital Signs (past 8 hours): - 03/17/21 09:50 03/17/21 11:05 03/17/21 12:00 Pulse Rate 90 Respiratory Rate 19 Blood Pressure 145/72 H 117/85 Pulse Oximetry 93 93 Oxygen Delivery Method Nasal Cannula Oxygen Flow Rate 2 Narrative Exam Narrative: GEN: WDWN no acute distress. HEENT: PERRL, moist mucous membranes NECK: trachea midline, no JVD CV: RRR no m/r/g. PULM: upper airway expiratory wheezing, mild. No rhonchi or rales. ABD: soft, nontender, nondistended, no organomegaly, normal bowel sounds EXT: warm and well perfused with no edema NEURO: awake, alert, oriented, no focal deficits Objective Labs Result Diagrams: 03/17/21 05:55 03/17/21 05:55 Labs: Laboratory Results - last 24 hr 03/17/21 03/17/21 05:55 05:55 WBC 5.4 RBC 4.39 Hgb 12.3 Hct 36.5 MCV 83.0 MCH 28.1 MCHC 33.9 RDW 14.5 Plt Count 200 Sodium 139 Potassium 3.6 Chloride 104 Carbon Dioxide 30 BUN 15 Creatinine 0.70 Estimated GFR > 60.0 BUN/Creatinine Ratio 21.4 Glucose 104 H Calcium 8.8 PFSH Medical History Chronic pain COVID-19 Depression Fibromyalgia Surgical History S/P epidural steroid injection Social History household members: spouse Smoking Status: Current every day smoker Discharge Plan Discharge Plan Patient Disposition: Home Provider Discharge Comment: You were admitted to the hospital with COVID pneumonia and probable COPD exacerbation. You were prescribed some inhalers to take at home along with nebulizer medications. Home O2 should only be given if O2 at home is <89%. Please follow up with your PCP, I have started you on a superintendent terminal inhaler, but this is not necessarily needed if you continue to improve. Discharge orders & Medications Prescriptions: New Serevent Diskus 50 mcg/dose blister with device 1 inh inhalation BID 30 Days Qty: 60 RF: 0 albuterol sulfate 90 mcg/actuation HFA aerosol inhaler 1 inh inhalation QID PRN (Reason: shortness of breath or wheezing) 30 Days Qty: 8.5 RF: 0 albuterol sulfate 2.5 mg /3 mL (0.083 %) solution for nebulization 2.5 mg inhalation QID PRN (Reason: shortness of breath or wheezing) 30 Days Qty: 90 RF: 0 Continued pregabalin 75 mg Capsule 75 mg PO BID RF: 0 losartan 50 mg Tablet 50 mg PO DAILY RF: 0 cyclobenzaprine 10 mg Tablet 10 mg PO TID PRN (Reason: Muscle Spasm) RF: 0 naltrexone 50 mg Tablet 6 mg PO DAILY RF: 0 trazodone 100 mg Tablet 200 mg PO BEDTIME RF: 0 buspirone 30 mg Tablet 30 mg PO BID RF: 0 dicyclomine 10 mg Capsule 30 mg PO DAILY RF: 0 duloxetine 60 mg Capsule,Delayed Release(Dr/Ec) 120 mg PO DAILY RF: 0 Diet/Activity/Treatments Diet: Diet as Tolerated Activity: As tolerated. Oxygen: Only if O2 <89% at home.
== END 2021-03-17 15:43 | disposition home or self-care (01) | DRG 177 ==
LOC: ED 19:24 → AC 03-14 07:56
PROVIDERS: Emergency Medicine; Admitting Provider Internal Medicine; Emergency Provider Emergency Medicine; Referring Provider Emergency Medicine; Visit Provider Internal Medicine
DX: U07.1 COVID-19 (principal); J12.82 Pneumonia due to coronavirus disease 2019; J96.01 Acute respiratory failure with hypoxia; J44.1 Chronic obstructive pulmonary disease with (acute) exacerbation; D72.819 Decreased white blood cell count, unspecified; D69.59 Other secondary thrombocytopenia; F17.200 Nicotine dependence, unspecified, uncomplicated; G89.29 Other chronic pain; F32.A Depression, unspecified; E66.9 Obesity, unspecified; I10 Essential (primary) hypertension; R74.01 Elevation of levels of liver transaminase levels; Z68.39 Body mass index [BMI] 39.0-39.9, adult
CPT/HCPCS: 36415; 71046; 80048; 80053; 80076; 83605; 84145; 85025; 85027; 85379; 87040; 87635; 93005; 93010; 94640; 94760; 96375; 99284; 99285; C9803; J1100; J1650; J7613

== ENCOUNTER 2021-06-23 16:18 | Emergency (ER) | payer OTHER, SELFPAY ==
[2021-06-23 16:24] VITALS: BP 157/95; PULSE 98; RESP 18; TEMP 36.2; O2SAT 97; BMI 40.3
--- NOTE | 2021-06-23 16:47 | DI.RAD.S_ITS ---
PROCEDURE: XR ABDOMEN 1V INDICATIONS: abd/rib pain TECHNIQUE: One view of the abdomen acquired. COMPARISON: [facility], CR, XR CHEST 2V, 03/13/2021, 16:33. FINDINGS: Surgical changes and devices: None. Bowel: Bowel gas pattern is normal. Soft tissues: No suspicious abdominal calcifications. Visualized solid organ contours appear normal in size. Bones: No suspicious bony lesions. The visualized inferior ribs demonstrate no displaced fracture. Age-appropriate bony degenerative changes are seen. Note is made of osteitis pubis, which is not considered to be frankly abnormal in a woman of this age. IMPRESSION: A nonobstructive bowel gas pattern is seen. If clinically appropriate, please consider a repeat plain film study or a dedicated CT of the abdomen and pelvis, if the patient's symptoms persist or worsen. No displaced rib fractures are detected. Dictated by: Gianfranco Al M.D. on 06/23/2021 at 16:16 Approved by: Gianfranco Al M.D. on 06/23/2021 at 16:16
[2021-06-23 17:11] LABS: Creatine Kinase 94 U/L (30-135)
[2021-06-23 17:12] LABS: Alanine Aminotransferase 19 IU/L (<35); Albumin 4.2 g/dL (3.5-5.0); Albumin Globulin Ratio 1.3 (1.0-2.8); Alkaline Phosphatase 67 U/L (38-126); Aspartate Aminotransferase 26 IU/L (14-36); BUN Creatinine Ratio 16.9 (6-22); Bilirubin Total 0.7 mg/dL (0.2-1.3); Blood Urea Nitrogen 13 mg/dL (7-17); Calcium 9.2 mg/dL (8.4-10.2); Carbon Dioxide 28 mmol/L (22-32); Chloride 107 mmol/L (98-107); Estimated Glomerular Filt Rate > 60.0 mL/min (>60); Globulin 3.3 g/dL (1.7-4.1); Glucose 123 mg/dL (70-100); HEMOLYSIS < 15 (0-50); Lipase 49 U/L (23-300); Sodium 138 mmol/L (137-145); Total Protein 7.5 g/dL (6.3-8.2)
[2021-06-23 17:22] LABS: Troponin I < 0.012 ng/mL (0.01-0.034)
[2021-06-23 17:26] LABS: Add Manual Diff / Slide Review NO; Basophils Absolute Auto 0 /uL (0-100); Basophils Percent Auto 0.2 % (0-2); Eosinophils Absolute Auto 100 /uL (0-450); Eosinophils Percent Auto 1.2 % (2-4); Hematocrit 36.5 % (36-46); Hemoglobin 12.6 g/dL (12.0-16.0); Lymphocytes Absolute Auto 2400 /uL (1100-4500); Lymphocytes Percent Auto 25.2 % (25-40); Mean Corpuscular HGB Conc 34.5 % (30-36); Mean Corpuscular Hemoglobin 28.7 PG (26-34); Mean Corpuscular Volume 83.3 fL (80-100); Monocytes Absolute Auto 500 /uL (0-900); Monocytes Percent Auto 4.8 % (3-14); Neutrophils Absolute Auto 6500 /uL (1500-7000); Neutrophils Percent Auto 68.6 % (50-75); Platelet Count 174 X10^3/uL (150-400); Red Blood Cell Count 4.39 X10^6/uL (4.0-5.2); Red Cell Distribution Width 14.7 % (11.6-14.8); White Blood Cell Count 9.5 X10^3/uL (4.5-11.0)
--- NOTE | 2021-06-23 18:03 | PC.NURSE ---
Patient requests to have IV removed at this time as she can't wait any longer. I tried to persuade her to stay. VDCed at this time with steady gait after IV removal. Was polite and states she will return if symptoms do not improve.
--- NOTE | 2021-06-23 20:27 | ED.ABDPAIN ---
HPI - Abdominal Pain General Chief Complaint: Abdominal Pain Stated Complaint: FEELS LIKE INTESTINE IS IN RIBS Source: patient Mode of arrival: Ambulatory Related Data Home Medications Medication Instructions Recorded Confirmed buspirone 30 mg tablet 30 mg PO BID 03/14/21 03/14/21 cyclobenzaprine 10 mg tablet 10 mg PO TID PRN 03/14/21 03/14/21 dicyclomine 10 mg capsule 30 mg PO DAILY 03/14/21 03/14/21 duloxetine 60 mg capsule,delayed 120 mg PO DAILY 03/14/21 03/14/21 release losartan 50 mg tablet 50 mg PO DAILY 03/14/21 03/14/21 naltrexone 50 mg tablet 6 mg PO DAILY 03/14/21 03/14/21 pregabalin 75 mg capsule 75 mg PO BID 03/14/21 03/14/21 trazodone 100 mg tablet 200 mg PO BEDTIME 03/14/21 03/14/21 Allergies Allergy/AdvReac Type Severity Reaction Status Date / Time lisinopril Allergy Cough Verified 03/13/21 16:15 Penicillins Allergy Hives Verified 03/13/21 16:14 sertraline [From Zoloft] Allergy Hives Verified 03/13/21 16:15 Patient History Medical History Chronic pain COVID-19 Depression Fibromyalgia Surgical History S/P epidural steroid injection Social History household members: spouse Smoking Status: Current every day smoker Smoking Status: Current every day smoker tobacco type: cigarettes alcohol intake frequency: holidays/special occasions only Substance Use Type: does not use Exam Initial Vital Signs Initial Vital Signs: Vital Signs Temperature 97.1 F L 06/23/21 16:24 Pulse Rate 98 H 06/23/21 16:24 Respiratory Rate 18 06/23/21 16:24 Blood Pressure 157/95 H 06/23/21 16:24 Pulse Oximetry 97 06/23/21 16:24 Course Orders Ordered: ED Orders 06/23/21 16:23 EKG-12 Lead Stat 06/23/21 16:40 Complete Blood Count AUTO DIFF Stat Comprehensive Metabolic Panel Stat Lipase Stat Troponin & CK Cardiac Panel Stat 06/23/21 16:47 XR abdomen 1V Stat Vital Signs Vital signs: Vital Signs - 8 hr 06/23/21 16:24 Temperature 97.1 F L Pulse Rate 98 H Respiratory Rate 18 Blood Pressure 157/95 H Pulse Oximetry 97 MDM - Abdominal Pain Lab Data Result diagrams: 06/23/21 16:40 06/23/21 16:40 Labs: Lab Results 06/23/21 06/23/21 06/23/21 Range/Units 16:40 16:40 16:40 WBC 9.5 (4.5-11.0) X10^3/uL RBC 4.39 (4.0-5.2) X10^6/uL Hgb 12.6 (12.0-16.0) g/dL Hct 36.5 (36-46) % MCV 83.3 (80-100) fL MCH 28.7 (26-34) PG MCHC 34.5 (30-36) % RDW 14.7 (11.6-14.8) % Plt Count 174 (150-400) X10^3/uL Neut % (Auto) 68.6 (50-75) % Lymph % (Auto) 25.2 (25-40) % Mineral % (Auto) 4.8 (3-14) % Eos % (Auto) 1.2 L (2-4) % Baso % (Auto) 0.2 (0-2) % Neut # (Auto) 6500 (0399-5158) /uL Lymph # (Auto) 2400 (3839-7608) /uL Mineral # (Auto) 500 (0-900) /uL Eos # (Auto) 100 (0-450) /uL Baso # (Auto) 0 (0-100) /uL Sodium 138 (137-145) mmol/L Potassium 4.0 (3.4-5.1) mmol/L Chloride 107 (98-107) mmol/L Carbon Dioxide 28 (22-32) mmol/L BUN 13 (7-17) mg/dL Creatinine 0.77 (0.52-1.04) mg/dL Estimated GFR > 60.0 (>60) mL/min BUN/Creatinine Ratio 16.9 (6-22) Glucose 123 H (70-100) mg/dL Calcium 9.2 (8.4-10.2) mg/dL Total Bilirubin 0.7 (0.2-1.3) mg/dL AST 26 (14-36) IU/L ALT 19 (<35) IU/L Alkaline Phosphatase 67 (38-126) U/L Total Creatine Kinase 94 (30-135) U/L CK-MB (CK-2) TNP CK-MB (CK-2) Rel Index TNP Troponin I < 0.012 (0.01-0.034) ng/mL Total Protein 7.5 (6.3-8.2) g/dL Albumin 4.2 (3.5-5.0) g/dL Globulin 3.3 (1.7-4.1) g/dL Albumin/Globulin Ratio 1.3 (1.0-2.8) Lipase 49 (23-300) U/L Discharge Plan Departure Patient Disposition: Left Without Being Seen Clinical Impression: Patient left without being seen
== END 2021-06-23 18:06 | disposition left against medical advice (07) ==
PROVIDERS: Emergency Provider Emergency Medicine; PCP Family Medicine
DX: Z53.21 Procedure and treatment not carried out due to patient leaving prior to being seen by health care provider (principal)
CPT/HCPCS: 36415; 74018; 80053; 82550; 83690; 84484; 85025; 93005; 93010; 99283